=== PATIENT | male | born 1940 | race Caucasian/White ===

== ENCOUNTER 2017-06-15 10:20 | Observation (INO) ==
[~2017-06-15 10:20] MED LIST: ACETAMINOPHEN 325 MG TABLET PO PRN; DOCUSATE SODIUM 100 MG CAPSULE PO PRN; ONDANSETRON 4 MG/2 ML VIAL IV PRN
[2017-06-15] MEDS ORDERED: GLUCAGON 1 MG VIAL IM PRN (10:29)
[2017-06-15] MEDS ORDERED: DEXTROSE 50% 25 GM/50 ML VIAL IV PRN (10:29)
[2017-06-15 11:05] LABS: Basophils # 0.1 10*3/uL (0.0-0.2); Basophils % 0.8 % (0.0-0.8); Eosinophils # 0.1 10*3/uL (0.0-0.87); Eosinophils % 1.1 % (0.00-10.9); Hemoglobin 15.8 GM/DL (14.0-18.0); Immature Granulocytes % 0.3 %; Immature Granulocytes Absolute 0.03 #; Lymphocytes # 2.2 10*3/uL (1.4-4.0); Lymphocytes % 25.1 % (21.2-54.2); Mean Corpuscular HGB Conc 33.6 GM/DL (32-36); Mean Corpuscular Hemoglobin 30 PG (27-34); Mean Corpuscular Volume 89.5 FL (87-102); Mean Platelet Volume 9.3 FL (9.6-12.0); Monocytes # 0.6 10*3/uL (0.11-0.8); Monocytes % 7.4 % (1.7-12.7); Neutrophils # 5.7 10*3/uL (1.4-7.4); Neutrophils % 65.3 % (38.7-73.9); Platelet Count 356 T/CUMM (130-400); Red Blood Count 5.25 MC/CUMM (3.8-5.5); Red Cell Distribution Width 13.8 % (9.3-17.3); White Blood Count 8.7 T/CUMM (4-12)
[2017-06-15 11:41] LABS: Albumin 4.6 G/DL (3.4-5.0); Bilirubin,Total 1.5 MG/DL (0.2-1.0); Calcium 9.7 MG/DL (8.5-10.1); Magnesium 2.3 MG/DL (1.8-2.4); Osmolality,Calculated 278.8 MOS/KG (273-304); Potassium 4.4 MMOL/L (3.5-5.1); Total Protein 7.9 G/DL (6.4-8.3)
[2017-06-15 11:42] LABS: Troponin I Only < 0.015 NG/ML (0.00-0.045)
[2017-06-15 11:48] LABS: Free T4 (Free Thyroxine) 0.94 NG/DL (0.76-1.46); Thyroid Stimulating Hormone 4.24 uIU/ml (0.358-3.74)
--- NOTE | 2017-06-15 12:21 | EKG Report ---
Stationary ECG Study [facility] Test Date: 06/15/2017 12:21:46 PM Pat Name: CHARMAINE REYES Department: Room: 280 Gender: M Business Consult: : 1940 Requested by: Presley Jacobs Order Number: [id number] Reading MD: MORAIMA HERRERA Intervals Allison Rate: 65 P: 62 NV: 250 QRS: 60 QRSD: 116 T: 66 QT: 400 QTc: 412 Interpretive Statements SINUS RHYTHM WITH PROLONGED NV INTERVAL NONSPECIFIC INTRAVENTRICULAR CONDUCTION DELAY Electronically Signed On 06-19-17 15:22:30 CDT by MORAIMA HERRERA [email or web address]
[2017-06-15] MEDS ORDERED: ENOXAPARIN 80 MG/0.8 ML SYRINGE SUBCUT SCH (12:30)
--- NOTE | 2017-06-15 13:21 | Family Practice History&Phys ---
Assessment and Plan (1) Chest pain Status: Acute Assessment and plan: 06/15/2017: We will admit get cardiac ossicles an EKG and do a chest x-ray and have a cardiology see him. Current Visit: Yes (2) Hypercholesterolemia Status: Acute Assessment and plan: 06/15/2017: Check fasting lipids in the morning Current Visit: Yes (3) Diabetes Status: Acute Assessment and plan: 06/15/2017: Placed on sliding scale and hopefully will build her discharge him on in the morning if all is negative Current Visit: No History of Present Illness Chief complaint: Chest pain, new onset diabetes, fatigue History of present illness: Mr. Muro is a 76 year old male Well-known to me. Has seen him for several years and he is an avid golfer. ( He used to play almost daily, until about 6 months ago.) As of late he has been having some increasing fatigue and daughter states he is not getting out as much as he used to, and states that he has been hurting particularly in his left rib cage/chest area. Admits that he has had a little diaphoresis with it "cold sweat", and also has some associated dizziness. Noted this morning that his blood sugar was up to 323, and was just feeling "very bad with some fatigue. No significant radiation of his pain although there may have been a little bit in his "left shoulder". He does have a history of hypercholesterolemia and also had a cath back in 2006 with a stent in his left anterior descending artery. Patient does not smoke nor does he drink alcohol. In general is very healthy otherwise Because of his symptom and the fact that this is fairly new for this patient, felt admission was necessary at least 23 hours make sure enzymes were okay and get a emergency care attendant to see him. It should be noted in the room he had an episode where he became dizzy and somewhat pale, his daughter was in the room with him at the time. Never lost consciousness and certainly a lot of this could be related to his diabetes, which is new onset Home Medications Medication Instructions Recorded Confirmed Type Aspirin [Ecotrin] 81 mg PO DAILY 07/08/15 12/18/16 History Atorvastatin Calcium 20 mg PO DAILY 07/08/15 12/18/16 History Verapamil HCl [Verapamil ER Cap] 180 mg PO DAILY 07/08/15 12/18/16 History metFORMIN [Glucophage] 850 mg PO BID W/MEALS 07/08/15 12/18/16 History Azithromycin [Azithromycin Z Pack] 250 mg PO DIRECTED 12/18/16 12/18/16 History HYDROcodone/CHLORPHEN ER SUSP 5 ml PO BID PRN 12/18/16 12/18/16 History [Tussionex] Multivitamin [Multivitamins] 1 each PO DAILY 12/18/16 12/18/16 History Naproxen [Naprosyn Tab] 500 mg PO BID PRN 12/18/16 12/18/16 History Oseltamivir Cap [Tamiflu Cap] 75 mg PO BID 12/18/16 12/18/16 History Allergies Allergy/AdvReac Type Severity Reaction Status Date / Time No Known Allergies Allergy Verified 07/08/15 10:35 12 point system: reviewed and no additional remarkable complaints except as stated (Except that mentioned in the history and physical.) Medical,Surgical,& Family Hx - Medical History Cardio: History of: Hypertension Endocrine: History of: Diabetes Mellitus (NIDDM), Dyslipidemia Gastrointestinal: History of: Gastrointestinal Bleed, GI Problems (pancreatic stone) Musculoskeletal: History of: Musculoskeletal Problems (rt knee scope, rt shoulder replacement) - Surgical History Cardiac Surgeries: Sugical HX of: Cardiac Catheterization (2 STENTS 2006) HEENT Surgeries: Patient denies: Tonsilectomy & Adenoidectomy Abdominal Surgeries: Surgical HX of: Abdominal Surgery (splenectomy) Orthopedic Surgeries: Surgical HX of;: Total Hip Replacement (3 HIP REPLACEMENTS ) - Family History Family History: Reports;: Family Hypertension Denies;: Family Cancer, Family Diabetes, Family Heart Disease, Family Stroke - Social History Smoking Status: Never smoker Frequency of Alcohol Use: None Type of Drug Use: None Exam - Constitutional Vitals: Period Temp Pulse Resp BP Sys/Marrufo Pulse Ox Last 24 Hr 65 18 146/86 98 Exam: Generally well-developed male he has a normal body habitus with a BMI of 26.19. Is alert and oriented at this time. He did have a spell of dizziness and fatigue for less than 30 seconds. He is without any justyna chest pain at this time although he does have a little bit of left lower rib cage discomfort that is not reproducible. HEENT pupils equal reactive light extraocular movements intact neck supple trachea midline Cardiovascular rate is regular no gallop or rub 1/6 systolic ejection murmur Lungs are clear Abdomen soft nondistended without any suprapubic pain Extremities no clubbing cyanosis edema Neurologically stable cranial and peripheral nerves at this time Results - Labs CBC & BMP: 06/15/17 10:55 06/15/17 10:55
[2017-06-15] MEDS: METOPROLOL TARTRATE 25 MG TABLET PO SCH ×2 (13:22→13:45)
[2017-06-15] MEDS: ASPIRIN CHEW 81 MG TABLET PO SCH (13:23)
[2017-06-15] MEDS: INSULIN LISPRO 100 UNIT/ML SUBCUT SCH ×2 (13:45→16:51)
[2017-06-15] MEDS: SODIUM CHLORIDE 0.9% 1,000 ML IV SCH ×2 (13:46→18:36)
--- NOTE | 2017-06-15 15:04 | XRay Report ---
XR chest 2V Indication: SOB Comparison: Chest x-ray dated December 18, 2016 Technique: Frontal and lateral views of the chest. Findings: The cardiomediastinal silhouette is stable in configuration. Chronic/granulomatous change without focal consolidation, pleural effusion, or pneumothorax. Visualized osseous and surrounding soft tissue structures appear grossly unchanged. IMPRESSION: Stable chest x-ray without acute cardiopulmonary process demonstrated. PROCEDURE INTERPRETED AT [facility] Final Report Signed by: Dr Raul Newton
[2017-06-15 16:41] LABS: Apearance,Urine CLEAR (Clear); Bacteria,Urine Occasional /HPF (Few); Bilirubin,Urine Negative (Negative); Blood, Urine Negative (Negative); Glucose,Urine (UA) Negative (Negative); Ketones,Urine Negative (Negative); Nitrite,Urine Negative (Negative); Protein,Urine Negative; Urine Color Straw (Yellow); Urine Specific Gravity 1.005 (1.001-1.035); Urine Urobilinogen < 2.0 EU/DL (0.2-1.0); WBC,Urine <1 /HPF (0-6)
[2017-06-15 17:51] LABS: Troponin I Only < 0.015 NG/ML (0.00-0.045)
[2017-06-15 22:45] LABS: Troponin I Only < 0.015 NG/ML (0.00-0.045)
[2017-06-16] MEDS: INSULIN LISPRO 100 UNIT/ML SUBCUT SCH ×3 (05:39→12:08)
[2017-06-16] MEDS: SODIUM CHLORIDE 0.9% 1,000 ML IV SCH ×3 (05:41→11:53)
[2017-06-16 05:54] LABS: Risk Ratio 3.13; VLDL CHOLESTEROL 14.8 MG/DL
--- NOTE | 2017-06-16 08:40 | Cardiology Consult Note ---
I, Bethanie Webber RN, am scribing for, and in the presence of, Benton Dobson MD 08:40. Assessment and Plan - Time spent with patient Time spent with patient: Greater than 30 minutes (Due to assessment, planning, documentation, medication review) (1) Dizziness Status: Acute Assessment and plan: I have examined and interviewed Mr. Muro. I agree with note above that would add the followin. 76-year-old WM with controlled hypertension, dyslipidemia, diabetes, CAD status post LAD stenting in 2006, with episode of syncope early 2015, now with some generalized fatigue and episodes of orthostasis 1 associated with some diaphoresis after moving a heavy dresser and then leaning over and standing up consistent with orthostasis. 2. Given his sinus bradycardia I suspect this may be contributing to his fatigue and possibly his orthostasis. I recommended stopping verapamil and changing to ARB or Norvasc to control his blood pressure. 3. Schedule outpatient exercise myocardial scan at [facility] this week, and hold beta -brendan at least 24 hours before. 4. He has been followed by Dr. Ward in clinic, and she will follow up with him in the next 1-2 weeks. 5. He has a normal EKG and is ruled out for [place] Current Visit: Yes (2) Chest pain Status: Acute Current Visit: Yes History of Present Illness - Data of Consult Patient: known to practice within the last 3 years Consult date: 06/15/17 Requesting Physician: Presley Goldberg Primary care physician: Presley Goldberg - Consult Narrative Reason for consult: Chest pain History of present illness: Composite Bond Worker: Dr. Ward PCP: Dr. Goldberg Mr. Muro is a 76 year old male has seen Dr. Ward in the past with a history of CAD, esophageal stricture, NIDDM, and dyslipidemia. Heart cath in October 2007 with successful intracoronary stent placement in the mid LAD. He was cathed again January 2015 for recurrent chest pain. There was no disease found to account for any anginal symptomatology. Other surgical history includes right shoulder, bilateral hip, esophageal stretching, knee scope, and pancreas and spleen removal. Family history is positive for mother with COPD. He reports she is a lifetime non-smoker. Mr. Muro presented to Dr. Goldberg's office this morning with complaints of dizziness and diaphoresis. He checked his blood sugar at home and it was in the 320s. He reports he has been having chest pain for the last week. He reports it is a dull sensation on the left lower part of his chest. He says the pain waxes and wanes and rates it a 3 on a scale of 1-10. He notes no triggers or alleviators. It does not radiate. It is not reproducible with palpation. He also reports he has been having left shoulder and right groin soreness. He reports he has been remodeling his house and thinks he may have overdone it. He denies any shortness of breath or nausea and vomiting with these episodes. His blood pressure was slightly elevated on admission at 146/ 86. His home medications have not been listed at this time so I am not sure if he takes anything for blood pressure or not. Glucose on admission was down to 146. Electrolytes are within normal range, cardiac biomarkers have been negative 1. We will continue to cycle these. EKG showed sinus rhythm with heart rate of 65. He denies any current chest pain, shortness of breath, palpitations, or dizziness. CC: Presley Goldberg, DO - Home Medications and Allergies Home Medications: Home Medications Medication Instructions Recorded Confirmed Type Aspirin [Ecotrin] 81 mg PO BEDTIME 07/08/15 06/15/17 History Atorvastatin Calcium 20 mg PO BEDTIME 07/08/15 06/15/17 History Verapamil HCl [Verapamil ER Cap] 180 mg PO DAILY 07/08/15 06/15/17 History Multivitamin [Multivitamins] 1 each PO DAILY 12/18/16 06/15/17 History Naproxen [Naprosyn Tab] 500 mg PO BID PRN 12/18/16 06/15/17 History Allergies/Adverse Reactions: Allergies Allergy/AdvReac Type Severity Reaction Status Date / Time No Known Allergies Allergy Verified 07/08/15 10:35 - Constitutional Constitutional: Present: as per HPI - EENT Eyes: Absent: blurry vision, loss of vision Ears: Absent: ear pain, tinnitus Nose, mouth and throat: Present: neck pain. Absent: dysphagia, epistaxis, headache(s) - Cardiovascular Cardiovascular: Present: chest pain at rest, diaphoresis, lightheadedness. Absent: dyspnea, dyspnea on exertion, edema, radiating jaw, neck or arm pain, orthopnea, palpitations - Respiratory Respiratory: Absent: cough, dyspnea, hemoptysis, dyspnea on exertion, wheezing - Gastrointestinal Gastrointestinal: Present: constipation. Absent: abdominal pain, diarrhea, hematemesis, hematochezia, melena, nausea, vomiting - Genitourinary Genitourinary: Absent: dysuria, hematuria - Musculoskeletal Musculoskeletal: Present: limited range of motion, muscle weakness. Absent: back pain - Neurological Neurological: Present: abnormal gait, dizziness. Absent: abnormal speech, confusion, frequent falls, headache(s), syncope - Psychiatric Psychiatric: Absent: anxiety, depression - Endocrine Endocrine: Present: fatigue - Hematologic/Lymphatic Hematologic/Lymphatic: Present: easy bruising. Absent: easy bleeding Medical,Surgical,& Family Hx - Medical History Cardio: History of: Hypertension Endocrine: History of: Diabetes Mellitus (NIDDM), Dyslipidemia Gastrointestinal: History of: Gastrointestinal Bleed, GI Problems (Esophageal stricture) Musculoskeletal: History of: Back/Neck Problems - Surgical History Cardiac Surgeries: Sugical HX of: Cardiac Catheterization Abdominal Surgeries: Surgical HX of: Abdominal Surgery (Pancreas), EGD ( Esophageal stretching), Splenectomy Orthopedic Surgeries: Surgical HX of;: Orthopedic Surgery (Right shoulder), Total Hip Replacement (3 HIP REPLACEMENTS) - Family History Family History: Reports;: Additional Family History (Mother with COPD) - Social History Smoking Status: Never smoker Have you smoked in the last 12 months: No Frequency of Alcohol Use: None Type of Drug Use: None Marital Status: Lives With:: Spouse Functional capacity: independent ambulation Physical Examination Vital Signs Pulse Resp BP Pulse Ox 65 18 146/86 98 06/15/17 10:51 06/15/17 10:51 06/15/17 10:51 06/15/17 10:51 General: Present: Appears Well, No Apparent Distress HEENT: Present: PERRL, Mucus Membranes Moist Neck: Present: Supple Neck, Midline Trachea, No Bruit Cardiac: Present: Reg Rate and Rhythm Lungs: Present: Normal Breath Sounds, No Wheeze, Rales, Rhonchi Neuro: Absent: Resting Tremor, Essential Tremor Abdomen: Present: Soft, Active Bowel Sounds, Non-Tender. Absent: Distended Skin: Absent: Rash, Suspicious Lesions Extremities: Present: No Edema, Normal Upper Extr. Pulses, Normal Lower Extr. Pulses Result/EKG - Labs CBC & BMP: 06/15/17 10:55 06/15/17 10:55 Lab Results: I have reviewed the past 24 hour labs Labs: Laboratory Results - last 24 hr 06/15/17 06/15/17 06/15/17 10:55 10:55 10:55 WBC 8.7 RBC 5.25 Hgb 15.8 Hct 47.0 MCV 89.5 MCH 30 MCHC 33.6 RDW 13.8 Plt Count 356 MPV 9.3 L Neut % (Auto) 65.3 Lymph % (Auto) 25.1 [place] % (Auto) 7.4 Eos % (Auto) 1.1 Baso % (Auto) 0.8 Neut # (Auto) 5.7 Lymph # (Auto) 2.2 [place] # (Auto) 0.6 Eos # (Auto) 0.1 Baso # (Auto) 0.1 Immature Gran % 0.3 Nucleated RBC % 0.0 Immature Gran # 0.03 Nucleated RBCs # 0.00 Sodium 137 Potassium 4.4 Chloride 103 Carbon Dioxide 29 Anion Gap 9.4 BUN 22 H Creatinine 0.90 GFR Calculation 106 BUN/Creatinine Ratio 24.00 H Glucose 146 H Hemoglobin A1c Calculated Osmolality 278.8 Calcium 9.7 Magnesium 2.3 Total Bilirubin 1.50 H AST 20 ALT 34 Alkaline Phosphatase 147 H Total Creatine Kinase CK-MB (CK-2) Troponin I Total Protein 7.9 Albumin 4.6 Globulin 3.3 Albumin/Globulin Ratio 1.3 Free T4 0.94 TSH 3rd Generation 4.240 H 06/15/17 06/15/17 10:55 10:55 WBC RBC Hgb Hct MCV MCH MCHC RDW Plt Count MPV Neut % (Auto) Lymph % (Auto) [place] % (Auto) Eos % (Auto) Baso % (Auto) Neut # (Auto) Lymph # (Auto) [place] # (Auto) Eos # (Auto) Baso # (Auto) Immature Gran % Nucleated RBC % Immature Gran # Nucleated RBCs # Sodium Potassium Chloride Carbon Dioxide Anion Gap BUN Creatinine GFR Calculation BUN/Creatinine Ratio Glucose Hemoglobin A1c 7.5 H Calculated Osmolality Calcium Magnesium Total Bilirubin AST ALT Alkaline Phosphatase Total Creatine Kinase 86 CK-MB (CK-2) 1.8 Troponin I < 0.015 Total Protein Albumin Globulin Albumin/Globulin Ratio Free T4 TSH 3rd Generation - EKG EKG results: interpreted by me EKG shows: sinus rhythm IOlya Randall Scott, MD, personally performed the services described in this documentation, ascribed by Webber,Bethanie, RN in my presence, and it is both accurate and complete .
[2017-06-16] MEDS ORDERED: PANTOPRAZOLE 40 MG TABLET PO SCH (09:00)
[2017-06-16] MEDS ORDERED: MULTIVITAMIN (CENTRUM) TABLET PO SCH (09:00)
[2017-06-16] MEDS ORDERED: ENOXAPARIN 40 MG/0.4 ML SYRINGE SUBCUT SCH (09:00)
[2017-06-16] MEDS ORDERED: VERAPAMIL SR 180 MG TABLET PO SCH (09:00)
[2017-06-16] MEDS: ASPIRIN CHEW 81 MG TABLET PO SCH (09:32)
[2017-06-16] MEDS: METOPROLOL TARTRATE 25 MG TABLET PO SCH (09:34)
--- NOTE | 2017-06-16 11:06 | Discharge Summary ---
Hospital Course - Hospital Course Hospital Course: Patient came to hospital with increasing fatigue and pain in his left rib chest area. He is also reasonably new onset diabetic over the last 6 months to year or so. He has not been taking his metformin. Nonetheless had some pain in the left shoulder going to the left side of his chest wall. There is no justyna midsternal chest pain. Also had a few what felt to be presyncopal episodes but he was never significantly orthostatic from these. Nonetheless, cardiac ices 3 were negative. Patient was evaluated by cardiology and felt that he could be discharged holding some of his blood pressure medicines including beta-brendan and will be stress test on an outpatient basis. Because of his syncopal episodes I did do carotid duplex which revealed no hemodynamically significant stenosis. Patient was ready to go home Diagnosis - Discharge Diagnosis (1) Chest pain Status: Acute (2) Hypercholesterolemia Status: Acute (3) Diabetes Status: Acute Specialty Discharge - Follow Up or Referrals Follow up with: Bashir Barr MD [Physician] - (STRESS TEST ThursdayJUNE 19 @ 0730 NO CAFFIENE 24 HRS PRIOR TO TEST, NOTHING TO EAT OR DRINK AFTER MIDNIGHT THE NIGHT BEFORE, DO NOT TAKE MORNING MEDS THE DAY OF TEST. WEAR COMFORTABLE SHOES. FOLLOW UP WITH DR BARR WED JUL 01 @ 0830) Presley Goldberg DO [Primary Care Provider] - (07/07/2017 10:45) Discharge Plan - Discharge Data Disposition: Disch To Home/Self Care Condition at Discharge: Stable Discharge Diet: diabetic diet, heart healthy Activity: increase activity as tolerated Hygiene: no restrictions Weight Bearing at Discharge: weight bear as tolerated Driving: no restrictions Contact your physician if you experience:: fever over 101, Nausea/Vomiting - Discharge Medications New Aspirin Chew Tab 81 mg PO DAILY tablet Losartan Potassium 50 mg PO DAILY #30 tablet Metformin HCl [Metformin HCl ER] 500 mg PO DAILY W/BREAKFAST #30 tab.er.[id number] Metoprolol Tartrate Tab [Lopressor Tab] 25 mg PO DAILY tablet Continue Atorvastatin Calcium 20 mg PO BEDTIME Aspirin [Ecotrin] 81 mg PO BEDTIME Verapamil HCl [Verapamil ER Cap] 180 mg PO DAILY Multivitamin [Multivitamins] 1 each PO DAILY Discontinued Naproxen [Naprosyn Tab] 500 mg PO BID PRN PRN Reason: INFLAMMATION - Follow Up or Referral Follow Up: Bashir Barr MD [Physician] - (STRESS TEST ThursdayJUNE 19 @ 0730 NO CAFFIENE 24 HRS PRIOR TO TEST, NOTHING TO EAT OR DRINK AFTER MIDNIGHT THE NIGHT BEFORE, DO NOT TAKE MORNING MEDS THE DAY OF TEST. WEAR COMFORTABLE SHOES. FOLLOW UP WITH DR BARR ThuJUL 01 @ 0830) Presley Goldberg DO [Primary Care Provider] - (07/07/2017 10:45) - Forms/Instructions Exam - Constitutional Vitals: Period Temp Pulse Resp BP Sys/Marrufo Pulse Ox Last 24 Hr 97.1 F-98.9 F 53-65 18-18 122-146/65-86 95-98 Discharge Results Labs on day of discharge: Labs from last 24 hours 06/16/17 06/16/17 06/16/17 07:52 05:19 03:58 WBC RBC Hgb Hct MCV MCH MCHC RDW Plt Count MPV Neut % (Auto) Lymph % (Auto) [place] % (Auto) Eos % (Auto) Baso % (Auto) Neut # (Auto) Lymph # (Auto) [place] # (Auto) Eos # (Auto) Baso # (Auto) Immature Gran % Nucleated RBC % Immature Gran # Nucleated RBCs # Sodium Potassium Chloride Carbon Dioxide Anion Gap BUN Creatinine GFR Calculation BUN/Creatinine Ratio Glucose POC Glucose 122 H 170 H Hemoglobin A1c Calculated Osmolality Calcium Magnesium Total Bilirubin AST ALT Alkaline Phosphatase Total Creatine Kinase CK-MB (CK-2) Troponin I Total Protein Albumin Globulin Albumin/Globulin Ratio Triglycerides 74 Cholesterol 122 LDL Cholesterol 70.0 VLDL Cholesterol 14.8 HDL Cholesterol 39 L Heart Disease Risk Ratio 3.13 Free T4 TSH 3rd Generation Urine Color Urine Appearance Urine pH Ur Specific [place] Urine Protein Urine Glucose (UA) Urine Ketones Urine Blood Urine Nitrate Urine Bilirubin Urine Urobilinogen Urine Leukocytes Urine WBC Urine Bacteria Ur Culture Indicated? 06/15/17 06/15/17 06/15/17 21:37 20:41 17:07 WBC RBC Hgb Hct MCV MCH MCHC RDW Plt Count MPV Neut % (Auto) Lymph % (Auto) [place] % (Auto) Eos % (Auto) Baso % (Auto) Neut # (Auto) Lymph # (Auto) [place] # (Auto) Eos # (Auto) Baso # (Auto) Immature Gran % Nucleated RBC % Immature Gran # Nucleated RBCs # Sodium Potassium Chloride Carbon Dioxide Anion Gap BUN Creatinine GFR Calculation BUN/Creatinine Ratio Glucose POC Glucose 138 H Hemoglobin A1c Calculated Osmolality Calcium Magnesium Total Bilirubin AST ALT Alkaline Phosphatase Total Creatine Kinase 68 D 86 CK-MB (CK-2) 1.5 1.5 Troponin I < 0.015 < 0.015 Total Protein Albumin Globulin Albumin/Globulin Ratio Triglycerides Cholesterol LDL Cholesterol VLDL Cholesterol HDL Cholesterol Heart Disease Risk Ratio Free T4 TSH 3rd Generation Urine Color Urine Appearance Urine pH Ur Specific [place] Urine Protein Urine Glucose (UA) Urine Ketones Urine Blood Urine Nitrate Urine Bilirubin Urine Urobilinogen Urine Leukocytes Urine WBC Urine Bacteria Ur Culture Indicated? 06/15/17 06/15/17 06/15/17 16:24 16:13 10:55 WBC RBC Hgb Hct MCV MCH MCHC RDW Plt Count MPV Neut % (Auto) Lymph % (Auto) [place] % (Auto) Eos % (Auto) Baso % (Auto) Neut # (Auto) Lymph # (Auto) [place] # (Auto) Eos # (Auto) Baso # (Auto) Immature Gran % Nucleated RBC % Immature Gran # Nucleated RBCs # Sodium Potassium Chloride Carbon Dioxide Anion Gap BUN Creatinine GFR Calculation BUN/Creatinine Ratio Glucose POC Glucose 131 H Hemoglobin A1c 7.5 H Calculated Osmolality Calcium Magnesium Total Bilirubin AST ALT Alkaline Phosphatase Total Creatine Kinase CK-MB (CK-2) Troponin I Total Protein Albumin Globulin Albumin/Globulin Ratio Triglycerides Cholesterol LDL Cholesterol VLDL Cholesterol HDL Cholesterol Heart Disease Risk Ratio Free T4 TSH 3rd Generation Urine Color Straw Urine Appearance Clear Urine pH 7.0 Ur Specific [place] 1.005 Urine Protein Negative Urine Glucose (UA) Negative Urine Ketones Negative Urine Blood Negative Urine Nitrate Negative Urine Bilirubin Negative Urine Urobilinogen < 2.0 H Urine Leukocytes Negative Urine WBC <1 Urine Bacteria Occasional Ur Culture Indicated? Not indicated 06/15/17 06/15/17 06/15/17 10:55 10:55 10:55 WBC RBC Hgb Hct MCV MCH MCHC RDW Plt Count MPV Neut % (Auto) Lymph % (Auto) [place] % (Auto) Eos % (Auto) Baso % (Auto) Neut # (Auto) Lymph # (Auto) [place] # (Auto) Eos # (Auto) Baso # (Auto) Immature Gran % Nucleated RBC % Immature Gran # Nucleated RBCs # Sodium 137 Potassium 4.4 Chloride 103 Carbon Dioxide 29 Anion Gap 9.4 BUN 22 H Creatinine 0.90 GFR Calculation 106 BUN/Creatinine Ratio 24.00 H Glucose 146 H POC Glucose Hemoglobin A1c Calculated Osmolality 278.8 Calcium 9.7 Magnesium 2.3 Total Bilirubin 1.50 H AST 20 ALT 34 Alkaline Phosphatase 147 H Total Creatine Kinase 86 CK-MB (CK-2) 1.8 Troponin I < 0.015 Total Protein 7.9 Albumin 4.6 Globulin 3.3 Albumin/Globulin Ratio 1.3 Triglycerides Cholesterol LDL Cholesterol VLDL Cholesterol HDL Cholesterol Heart Disease Risk Ratio Free T4 0.94 TSH 3rd Generation 4.240 H Urine Color Urine Appearance Urine pH Ur Specific [place] Urine Protein Urine Glucose (UA) Urine Ketones Urine Blood Urine Nitrate Urine Bilirubin Urine Urobilinogen Urine Leukocytes Urine WBC Urine Bacteria Ur Culture Indicated? 06/15/17 10:55 WBC 8.7 RBC 5.25 Hgb 15.8 Hct 47.0 MCV 89.5 MCH 30 MCHC 33.6 RDW 13.8 Plt Count 356 MPV 9.3 L Neut % (Auto) 65.3 Lymph % (Auto) 25.1 [place] % (Auto) 7.4 Eos % (Auto) 1.1 Baso % (Auto) 0.8 Neut # (Auto) 5.7 Lymph # (Auto) 2.2 [place] # (Auto) 0.6 Eos # (Auto) 0.1 Baso # (Auto) 0.1 Immature Gran % 0.3 Nucleated RBC % 0.0 Immature Gran # 0.03 Nucleated RBCs # 0.00 Sodium Potassium Chloride Carbon Dioxide Anion Gap BUN Creatinine GFR Calculation BUN/Creatinine Ratio Glucose POC Glucose Hemoglobin A1c Calculated Osmolality Calcium Magnesium Total Bilirubin AST ALT Alkaline Phosphatase Total Creatine Kinase CK-MB (CK-2) Troponin I Total Protein Albumin Globulin Albumin/Globulin Ratio Triglycerides Cholesterol LDL Cholesterol VLDL Cholesterol HDL Cholesterol Heart Disease Risk Ratio Free T4 TSH 3rd Generation Urine Color Urine Appearance Urine pH Ur Specific [place] Urine Protein Urine Glucose (UA) Urine Ketones Urine Blood Urine Nitrate Urine Bilirubin Urine Urobilinogen Urine Leukocytes Urine WBC Urine Bacteria Ur Culture Indicated? DS: Provider Date of admission: 06/15/17 10:25 Primary care physician: Presley Goldberg DO Attending physician on admission: Presley Goldberg DO Consults: 06/15/17 10:20 Consult to Case Mgmt/Social Srvs [CONS] Routine Reason for Case Mgmt/Social Srvs: Discharge Planning 06/15/17 10:22 Consult to Physician [CONS] Routine Comment: CP,New onset DM Consulting Provider: Cardiology - [facility] Person Notified: nisreen Barreraa 06/16 -7:30 Date Notified: 06/15/17 Time Notified: 11:15 06/15/17 10:30 Consult to [facility], Educator [CONS] Routine Reason for Balance Staff Staker: Evaluate and Recommend Consult Comment: new onset diabetes Discharging clinician: Presley Goldberg DO
--- NOTE | 2017-06-16 12:11 | Ultrasound Report ---
Exam: US carotid duplex BI Date:06/16/2017 11:08 AM Comparison: None Indication: Syncope RIGHT - Peak Velocity Measurements CCA MID: 70 cm/s ICA PROX: 58.6 cm/s ICA DISTAL: 56.0 cm/s ECA: 99.0 cm/s Vertebral: 41.6 cm/s LEFT - Peak Velocity Measurements CCA MID: 86 cm/s ICA PROX: 75.5 cm/s ICA DISTAL: 67.7 cm/s ECA: 108.1 cm/s VERTEBRAL: 56.0 cm/s Findings: Grayscale, spectral Doppler, and color flow analysis performed and interpreted There is a mild amount of soft and partially calcified plaque in both proximal internal carotid arteries Peak systolic ratios are 0.8 on the right and 0.9 on the left There is antegrade flow in both vertebral arteries Impression: Mild amount of plaque with less than 50% diameter stenoses bilaterally by NASCET criteria PROCEDURE INTERPRETED AT [facility] DEPARTMENT OF RADIOLOGY Final Report Signed by: Dr. Brandee Cochran
[2017-06-16 12:18] VITALS: BP 147/79
[2017-06-16] MEDS ORDERED: ATORVASTATIN 20 MG TABLET PO SCH (21:00)
[2017-06-17] MEDS ORDERED: METOPROLOL SUCCINATE XL 25 MG TABLET PO SCH (09:00)
== END 2017-06-16 15:00 | disposition home or self-care (01) ==
LOC: N.TELEN
PROVIDERS: ADMIT Family Medicine; ATTEND Family Medicine

== ENCOUNTER 2020-02-14 10:06 | Observation (INO) ==
[2020-02-14] MEDS ORDERED: ASPIRIN 325 MG TABLET PO STA (10:44)
[2020-02-14] MEDS ORDERED: NITROGLYCERIN 2% OINT 1 INCH/GM PACK TOP STA (10:44)
[2020-02-14 10:59] LABS: Basophils # 0.1 10*3/uL (0.0-0.2); Basophils % 0.6 % (0.0-0.8); Eosinophils # 0.2 10*3/uL (0.0-0.87); Eosinophils % 1.8 % (0.00-10.9); Hematocrit 45.1 VOL% (42.0-52.0); Hemoglobin 14.3 GM/DL (14.0-18.0); Immature Granulocytes % 0.3 %; Immature Granulocytes Absolute 0.03 #; Lymphocytes # 2.4 10*3/uL (1.4-4.0); Mean Corpuscular HGB Conc 31.7 GM/DL (32-36); Mean Corpuscular Volume 91.5 FL (87-102); Mean Platelet Volume 9.1 FL (9.6-12.0); Monocytes % 9.8 % (1.7-12.7); Neutrophils % 60.5 % (38.7-73.9); Platelet Count 404 T/CUMM (130-400); Red Blood Count 4.93 MC/CUMM (3.8-5.5); Red Cell Distribution Width 13.8 % (9.3-17.3); White Blood Count 8.9 T/CUMM (4-12)
[2020-02-14 11:26] LABS: Albumin 3.9 G/DL (3.4-5.0); Bilirubin,Total 0.4 MG/DL (0.2-1.0); Calcium 9.6 MG/DL (8.5-10.1); Total Protein 7.9 G/DL (6.4-8.3)
[2020-02-14] MEDS ORDERED: DEXTROSE 50% 25 GM/50 ML VIAL IV PRN (14:33)
[2020-02-14] MEDS ORDERED: GLUCAGON 1 MG VIAL IM PRN (14:33)
[2020-02-14] MEDS ORDERED: ENOXAPARIN 40 MG/0.4 ML SYRINGE SUBCUT SCH (14:33)
[2020-02-14] MEDS ORDERED: ACETAMINOPHEN 325 MG TABLET PO PRN (14:33)
[2020-02-14] MEDS ORDERED: ONDANSETRON 4 MG/2 ML VIAL IV PRN (14:33)
[2020-02-14] MEDS: SODIUM CHLORIDE 0.9% 1,000 ML IV SCH ×2 (15:59→23:50)
[2020-02-14] MEDS: INSULIN LISPRO 100 UNIT/ML SUBCUT SCH ×2 (19:59→21:08)
[2020-02-14] MEDS ORDERED: ATORVASTATIN 20 MG TABLET PO SCH (21:00)
[2020-02-14] MEDS: ASPIRIN EC 81 MG TABLET PO SCH (21:04)
[2020-02-14] MEDS: DOCUSATE SODIUM 100 MG CAPSULE PO SCH (21:05)
[2020-02-15] MEDS: DOCUSATE SODIUM 100 MG CAPSULE PO SCH ×2 (08:00→21:01)
[2020-02-15] MEDS: ASPIRIN EC 81 MG TABLET PO SCH ×2 (08:00→21:02)
[2020-02-15] MEDS: MAGNESIUM CHLORIDE 64 MG TABLET PO SCH (08:00)
[2020-02-15] MEDS: PANTOPRAZOLE 40 MG TABLET PO SCH (08:00)
[2020-02-15] MEDS: INSULIN LISPRO 100 UNIT/ML SUBCUT SCH ×4 (08:01→21:09)
[2020-02-15] MEDS ORDERED: MAGNESIUM SULF RIDER 2 GM in PREMIX 1 EACH IV PRN (08:04)
[2020-02-15] MEDS ORDERED: POTASSIUM CHLORIDE RIDER 10 MEQ in PREMIX 1 EACH IV PRN (08:04)
[2020-02-15 08:36] LABS: PT Patient Result 11.2 SECS (9.6-12.2)
[2020-02-15] MEDS ORDERED: NITROGLYCERIN DRIP 50 MG/250 ML BOTTLE IV ONE (11:10)
[2020-02-15] MEDS ORDERED: VERAPAMIL 5 MG/2 ML VIAL ONE (11:10)
[2020-02-15] MEDS ORDERED: LIDOCAINE 1% 20 ML VIAL ONE (11:10)
[2020-02-15] MEDS ORDERED: DIAZEPAM 5 MG TABLET PO ONE (11:30)
[2020-02-15] MEDS ORDERED: diphenhydrAMINE CAP 25 MG CAPSULE PO ONE (11:30)
[2020-02-15] MEDS ORDERED: MIDAZOLAM 2 MG/2 ML VIAL ONE (11:55)
[2020-02-15] MEDS ORDERED: fentaNYL 100 MCG/2 ML VIAL ONE (11:56)
[2020-02-15] MEDS ORDERED: ENOXAPARIN 60 MG/0.6 ML SYRINGE ONE (12:09)
[2020-02-15] MEDS ORDERED: TIROFIBAN 5,000 MCG/100 ML PREMIX IV ONE (12:16)
[2020-02-15] MEDS ORDERED: TIROFIBAN 5,000 MCG/100 ML PREMIX IV SCH (12:24)
[2020-02-15] MEDS ORDERED: TICAGRELOR 90 MG TABLET ONE (12:37)
[2020-02-15] MEDS ORDERED: ZALEPLON 5 MG CAPSULE PO PRN (12:46)
[2020-02-15] MEDS: SODIUM CHLORIDE 0.9% 1,000 ML IV SCH (14:43)
[2020-02-15] MEDS ORDERED: ATORVASTATIN 40 MG TABLET PO SCH (21:00)
[2020-02-15] MEDS: TICAGRELOR 90 MG TABLET PO SCH (21:01)
[2020-02-16] MEDS: SODIUM CHLORIDE 0.9% 1,000 ML IV SCH (03:10)
[2020-02-16 04:22] LABS: Basophils # 0.1 10*3/uL (0.0-0.2); Basophils % 0.9 % (0.0-0.8); Eosinophils # 0.2 10*3/uL (0.0-0.87); Eosinophils % 2.4 % (0.00-10.9); Hematocrit 39.5 VOL% (42.0-52.0); Immature Granulocytes % 0.3 %; Immature Granulocytes Absolute 0.03 #; Lymphocytes # 2.1 10*3/uL (1.4-4.0); Lymphocytes % 23.2 % (21.2-54.2); Mean Corpuscular HGB Conc 32.9 GM/DL (32-36); Mean Corpuscular Volume 87.8 FL (87-102); Mean Platelet Volume 9.4 FL (9.6-12.0); Monocytes % 11.4 % (1.7-12.7); Neutrophils % 61.8 % (38.7-73.9); Platelet Count 377 T/CUMM (130-400); Red Cell Distribution Width 13.6 % (9.3-17.3); White Blood Count 9.1 T/CUMM (4-12)
[2020-02-16 04:44] LABS: Calcium 8.6 MG/DL (8.5-10.1); Osmolality,Calculated 283.3 MOS/KG (273-304)
[2020-02-16 04:46] LABS: HDL Cholesterol 37 MG/DL (40-60); Risk Ratio 2.92; Triglycerides 78 MG/DL (2-150); Troponin I 0.022 NG/ML (0.00-0.045); VLDL CHOLESTEROL 15.6 MG/DL
[2020-02-16 07:50] VITALS: BP 131/70
[2020-02-16] MEDS: ASPIRIN EC 81 MG TABLET PO SCH (08:35)
[2020-02-16] MEDS: DOCUSATE SODIUM 100 MG CAPSULE PO SCH (08:35)
[2020-02-16] MEDS: TICAGRELOR 90 MG TABLET PO SCH (08:35)
[2020-02-16] MEDS: PANTOPRAZOLE 40 MG TABLET PO SCH (08:35)
[2020-02-16] MEDS: MAGNESIUM CHLORIDE 64 MG TABLET PO SCH (08:35)
[2020-02-16] MEDS: INSULIN LISPRO 100 UNIT/ML SUBCUT SCH (08:36)
== END 2020-02-16 11:30 | disposition home or self-care (01) ==
LOC: N.EDINP 10:06 → N.ED 10:06 → N.2W 14:28 → N.TELES 02-15 12:41
PROVIDERS: ADMIT Family Medicine; ATTEND Family Medicine
PROC: CLCCHCL (ICD-10-PCS; 2020-02-15 12:15)

== ENCOUNTER 2021-01-19 18:23 | Observation (INO) ==
[2021-01-19 19:31] LABS: Basophils # 0.1 10*3/uL (0.0-0.2); Basophils % 1.1 % (0.0-0.8); Eosinophils # 0.2 10*3/uL (0.0-0.87); Eosinophils % 2.2 % (0.00-10.9); Hematocrit 38.8 VOL% (42.0-52.0); Hemoglobin 12.3 GM/DL (14.0-18.0); Immature Granulocytes % 0.1 %; Immature Granulocytes Absolute 0.01 #; Lymphocytes # 3.2 10*3/uL (1.4-4.0); Lymphocytes % 42.5 % (21.2-54.2); Mean Corpuscular HGB Conc 31.7 GM/DL (32-36); Mean Corpuscular Volume 92.2 FL (87-102); Mean Platelet Volume 9.5 FL (9.6-12.0); Monocytes % 11.5 % (1.7-12.7); Neutrophils % 42.6 % (38.7-73.9); Platelet Count 367 T/CUMM (130-400); Red Blood Count 4.21 MC/CUMM (3.8-5.5); Red Cell Distribution Width 15.3 % (9.3-17.3); White Blood Count 7.4 T/CUMM (4-12)
[2021-01-19 19:46] LABS: Alanine Aminotransferase 22 U/L (16-61); Albumin 3.8 G/DL (3.4-5.0); Alkaline Phosphatase 125 U/L (45-117); Aspartate Amino Transferase 15 U/L (0-37); Bilirubin,Total < 0.39 MG/DL (0.2-1.0); Blood Urea Nitrogen 24 MG/DL (7-18); Calcium 8.8 MG/DL (8.5-10.1); Carbon Dioxide 27 MMOL/L (21-32); Estimated Glom Filtration Rate 99 ML/MIN; Glucose 173 MG/DL (74-106); Osmolality,Calculated 282.7 MOS/KG (273-304); Sodium 138 MMOL/L (136-145)
[2021-01-19] MEDS ORDERED: NITROGLYCERIN SL 0.4 MG TABLET SL PRN (20:16)
[2021-01-19] MEDS: DONEPEZIL 5 MG TABLET PO SCH (22:32)
[2021-01-20 05:35] LABS: Basophils # 0.1 10*3/uL (0.0-0.2); Basophils % 0.7 % (0.0-0.8); Eosinophils # 0.2 10*3/uL (0.0-0.87); Eosinophils % 3.3 % (0.00-10.9); Hematocrit 36.3 VOL% (42.0-52.0); Hemoglobin 11.6 GM/DL (14.0-18.0); Immature Granulocytes % 0.1 %; Immature Granulocytes Absolute 0.01 #; Lymphocytes # 2.7 10*3/uL (1.4-4.0); Lymphocytes % 38.9 % (21.2-54.2); Mean Corpuscular Volume 92.8 FL (87-102); Mean Platelet Volume 9.3 FL (9.6-12.0); Monocytes % 13.6 % (1.7-12.7); Neutrophils % 43.4 % (38.7-73.9); Platelet Count 366 T/CUMM (130-400); Red Blood Count 3.91 MC/CUMM (3.8-5.5); Red Cell Distribution Width 15.4 % (9.3-17.3); White Blood Count 6.9 T/CUMM (4-12)
[2021-01-20 06:03] LABS: Albumin 3.2 G/DL (3.4-5.0); Bilirubin,Total 1.1 MG/DL (0.2-1.0); Calcium 8.6 MG/DL (8.5-10.1); Osmolality,Calculated 283.3 MOS/KG (273-304); Potassium 4.1 MMOL/L (3.5-5.1); Total Protein 6.7 G/DL (6.4-8.3)
[2021-01-20] MEDS ORDERED: metFORMIN 500 MG TABLET PO SCH (08:00)
[2021-01-20 08:11] LABS: Troponin I < 0.015 NG/ML (0.00-0.045)
[2021-01-20] MEDS ORDERED: GLUCAGON 1 MG VIAL IM PRN (08:50)
[2021-01-20] MEDS ORDERED: DEXTROSE 50% 25 GM/50 ML VIAL IV PRN (08:50)
[2021-01-20 08:54] LABS: Troponin I < 0.015 NG/ML (0.00-0.045)
[2021-01-20] MEDS ORDERED: ASPIRIN 325 MG TABLET PO SCH (09:00)
[2021-01-20] MEDS: PIOGLITAZONE 15 MG TABLET PO SCH (09:22)
[2021-01-20] MEDS: ENOXAPARIN 40 MG/0.4 ML SYRINGE SUBCUT SCH ×2 (09:23→21:27)
[2021-01-20] MEDS: LOSARTAN 50 MG TABLET PO SCH (09:23)
[2021-01-20] MEDS: TICAGRELOR 90 MG TABLET PO SCH ×2 (09:56→21:27)
[2021-01-20] MEDS: INSULIN LISPRO 100 UNIT/ML SUBCUT SCH ×3 (11:34→21:28)
[2021-01-20 11:39] LABS: Troponin I < 0.015 NG/ML (0.00-0.045)
[2021-01-20 14:12] LABS: Troponin I < 0.015 NG/ML (0.00-0.045)
[2021-01-20 16:47] LABS: Troponin I < 0.015 NG/ML (0.00-0.045)
[2021-01-20] MEDS ORDERED: ROSUVASTATIN 20 MG TABLET PO SCH (21:00)
[2021-01-20] MEDS: DONEPEZIL 5 MG TABLET PO SCH (21:26)
[2021-01-21 06:46] LABS: Risk Ratio 3.15; VLDL CHOLESTEROL 17.8 MG/DL
[2021-01-21] MEDS: LOSARTAN 50 MG TABLET PO SCH ×2 (09:07→11:25)
[2021-01-21] MEDS: PIOGLITAZONE 15 MG TABLET PO SCH ×2 (09:07→11:25)
[2021-01-21] MEDS: ASPIRIN EC 81 MG TABLET PO SCH ×2 (09:07→11:25)
[2021-01-21] MEDS: INSULIN LISPRO 100 UNIT/ML SUBCUT SCH ×2 (09:07→11:39)
[2021-01-21] MEDS: TICAGRELOR 90 MG TABLET PO SCH ×2 (09:07→11:25)
[2021-01-21] MEDS: ENOXAPARIN 40 MG/0.4 ML SYRINGE SUBCUT SCH (11:25)
[2021-01-21 11:42] VITALS: BP 139/87
== END 2021-01-21 13:55 | disposition home or self-care (01) ==
LOC: N.ED 18:23 → N.EDINP 18:23 → N.TELES 20:32
PROVIDERS: ADMIT Family Medicine; ATTEND Family Medicine

== ENCOUNTER 2021-09-16 09:32 | Observation (INO) ==
[2021-09-16 11:28] LABS: PT Patient Result 11.2 SECS (10.5-12.0)
[2021-09-16 11:30] LABS: Partial Thromboplastin Time < 20.0 SECS (23.9-33.8)
[2021-09-16 11:36] LABS: Basophils % 0.4 % (0.0-0.8); Eosinophils # 0.1 10*3/uL (0.0-0.87); Eosinophils % 1.2 % (0.00-10.9); Hematocrit 42.5 VOL% (42.0-52.0); Hemoglobin 13.8 GM/DL (14.0-18.0); Immature Granulocytes % 0.3 %; Immature Granulocytes Absolute 0.02 #; Lymphocytes # 2.3 10*3/uL (1.4-4.0); Lymphocytes % 31.5 % (21.2-54.2); Mean Corpuscular HGB Conc 32.5 GM/DL (32-36); Mean Corpuscular Volume 91.4 FL (87-102); Mean Platelet Volume 10.1 FL (9.6-12.0); Monocytes % 7.7 % (1.7-12.7); Neutrophils % 58.9 % (38.7-73.9); Platelet Count 406 T/CUMM (130-400); Red Blood Count 4.65 MC/CUMM (3.8-5.5); Red Cell Distribution Width 14.5 % (9.3-17.3); White Blood Count 7.2 T/CUMM (4-12)
[2021-09-16 12:06] LABS: Albumin 4.2 G/DL (3.4-5.0); Bilirubin,Total 0.6 MG/DL (0.20-1.00); Calcium 9.4 MG/DL (8.5-10.1); Osmolality,Calculated 282.4 MOS/KG (273-304); Potassium 3.9 MMOL/L (3.5-5.1); Total Protein 7.7 G/DL (6.4-8.2)
[2021-09-16] MEDS ORDERED: ENOXAPARIN 100 MG/ML SYRINGE SUBCUT STA (13:03)
[2021-09-16] MEDS ORDERED: ONDANSETRON 4 MG/2 ML VIAL IV PRN (15:56)
[2021-09-16] MEDS ORDERED: DEXTROSE 50% 25 GM/50 ML VIAL IV PRN (15:56)
[2021-09-16] MEDS ORDERED: NITROGLYCERIN SL 0.4 MG TABLET SL PRN (15:56)
[2021-09-16] MEDS ORDERED: ACETAMINOPHEN 325 MG TABLET PO PRN (15:56)
[2021-09-16] MEDS ORDERED: MORPHINE 2 MG/1 ML SYRINGE IV PRN (15:56)
[2021-09-16] MEDS ORDERED: GLUCAGON 1 MG VIAL IM PRN (15:56)
[2021-09-16] MEDS: INSULIN REGULAR 100 UNIT/ML SUBCUT SCH ×2 (16:20→21:51)
[2021-09-16] MEDS ORDERED: ATORVASTATIN 20 MG TABLET PO SCH (21:00)
[2021-09-16] MEDS ORDERED: DONEPEZIL 10 MG TABLET PO SCH (21:00)
[2021-09-16] MEDS: MEMANTINE 5 MG TABLET PO SCH (21:51)
[2021-09-16] MEDS: DOCUSATE SODIUM 100 MG CAPSULE PO SCH (21:51)
[2021-09-17] MEDS ORDERED: ENOXAPARIN 80 MG/0.8 ML SYRINGE SUBCUT SCH (01:30)
[2021-09-17] MEDS: INSULIN REGULAR 100 UNIT/ML SUBCUT SCH ×2 (07:58→11:30)
[2021-09-17] MEDS ORDERED: PIOGLITAZONE 15 MG TABLET PO SCH (08:00)
[2021-09-17] MEDS: MEMANTINE 5 MG TABLET PO SCH (08:21)
[2021-09-17] MEDS: DOCUSATE SODIUM 100 MG CAPSULE PO SCH (08:21)
[2021-09-17] MEDS ORDERED: PANTOPRAZOLE 40 MG TABLET PO SCH (09:00)
[2021-09-17] MEDS ORDERED: PARoxetine 20 MG TABLET PO SCH (09:00)
[2021-09-17 09:41] VITALS: BP 125/70
[2021-09-18] MEDS ORDERED: ASPIRIN EC 81 MG TABLET PO SCH (09:00)
== END 2021-09-17 11:28 | disposition home or self-care (01) ==
LOC: N.EDINP 09:32 → N.ED 09:32 → N.EDINP 15:08 → N.TELES 15:15
PROVIDERS: ADMIT Family Medicine; ATTEND Family Medicine

== ENCOUNTER 2021-11-14 19:59 | Observation (INO) ==
[2021-11-14 20:36] LABS: Basophils % 0.5 % (0.0-0.8); Eosinophils # 0.1 10*3/uL (0.0-0.87); Eosinophils % 1.9 % (0.00-10.9); Hematocrit 39.3 VOL% (42.0-52.0); Hemoglobin 12.6 GM/DL (14.0-18.0); Immature Granulocytes % 0.2 %; Immature Granulocytes Absolute 0.01 #; Lymphocytes # 2.6 10*3/uL (1.4-4.0); Lymphocytes % 42.5 % (21.2-54.2); Mean Corpuscular HGB Conc 32.1 GM/DL (32-36); Mean Corpuscular Volume 89.3 FL (87-102); Mean Platelet Volume 8.7 FL (9.6-12.0); Neutrophils % 42.9 % (38.7-73.9); Platelet Count 327 T/CUMM (130-400); Red Cell Distribution Width 14.2 % (9.3-17.3); White Blood Count 6.2 T/CUMM (4-12)
[2021-11-14 20:58] LABS: Albumin 4.2 G/DL (3.4-5.0); Bilirubin,Total 0.8 MG/DL (0.20-1.00); Calcium 8.8 MG/DL (8.5-10.1); Osmolality,Calculated 268.2 MOS/KG (273-304); Potassium 4.5 MMOL/L (3.5-5.1); Total Protein 7.9 G/DL (6.4-8.2)
[2021-11-14] MEDS ORDERED: ASPIRIN 325 MG TABLET PO STA (21:06)
[2021-11-14 22:23] LABS: Bilirubin,Urine Negative (Negative); Blood, Urine Negative (Negative); Glucose,Urine (UA) Negative (Negative); Ketones,Urine Negative (Negative); Nitrite,Urine Negative (Negative); Protein,Urine Negative; RBC,Urine <1 /HPF (0-4); Urine Appearance CLEAR (Clear); Urine Color Colorless (Yellow); Urine Specific Gravity 1.002 (1.001-1.035); Urine Urobilinogen < 2.0 EU/DL (<2.0)
[2021-11-15] MEDS ORDERED: ONDANSETRON 4 MG/2 ML VIAL IV PRN (00:17)
[2021-11-15] MEDS ORDERED: ACETAMINOPHEN 325 MG TABLET PO PRN (00:17)
[2021-11-15] MEDS ORDERED: NITROGLYCERIN SL 0.4 MG TABLET SL PRN (08:18)
[2021-11-15] MEDS ORDERED: PANTOPRAZOLE 40 MG TABLET PO SCH (09:00)
[2021-11-15] MEDS ORDERED: PIOGLITAZONE 15 MG TABLET PO SCH (09:00)
[2021-11-15] MEDS ORDERED: metFORMIN 500 MG TABLET PO SCH (09:00)
[2021-11-15] MEDS ORDERED: DOCUSATE SODIUM 100 MG CAPSULE PO SCH (09:00)
[2021-11-15] MEDS ORDERED: PARoxetine 20 MG TABLET PO SCH (09:00)
[2021-11-15] MEDS ORDERED: ASPIRIN EC 81 MG TABLET PO SCH (09:00)
[2021-11-15 11:55] VITALS: BP 147/63
[2021-11-15] MEDS ORDERED: DONEPEZIL 10 MG TABLET PO SCH (21:00)
[2021-11-15] MEDS ORDERED: ATORVASTATIN 20 MG TABLET PO SCH (21:00)
== END 2021-11-15 15:45 | disposition home or self-care (01) ==
LOC: N.EDINP 19:59 → N.ED 19:59 → N.TELES 11-15 02:52
PROVIDERS: ADMIT Family Medicine; ATTEND Family Medicine

== ENCOUNTER 2023-01-09 11:12 | Observation (INO) ==
[2023-01-09] MEDS ORDERED: ASPIRIN 325 MG TABLET PO STA (11:46)
[2023-01-09] MEDS ORDERED: NITROGLYCERIN SL 0.4 MG TABLET SL PRN (11:46)
[2023-01-09 11:47] LABS: Basophils # 0.1 10*3/uL (0.0-0.2); Basophils % 0.8 % (0.0-0.8); Eosinophils # 0.1 10*3/uL (0.0-0.87); Eosinophils % 1.1 % (0.00-10.9); Hematocrit 45.5 VOL% (42.0-52.0); Immature Granulocytes % 0.3 %; Immature Granulocytes Absolute 0.02 #; Lymphocytes # 2.6 10*3/uL (1.4-4.0); Lymphocytes % 32.9 % (21.2-54.2); Mean Corpuscular Volume 90.1 FL (87-102); Mean Platelet Volume 8.9 FL (9.6-12.0); Monocytes # 0.6 10*3/uL (0.11-0.8); Monocytes % 7.4 % (1.7-12.7); Neutrophils % 57.5 % (38.7-73.9); Platelet Count 468 T/CUMM (130-400); Red Blood Count 5.05 MC/CUMM (3.8-5.5); White Blood Count 7.87 T/CUMM (4-12)
[2023-01-09 12:06] LABS: Albumin 4.3 G/DL (3.4-5.0); Bilirubin,Total 0.5 MG/DL (0.20-1.00); Calcium 9.8 MG/DL (8.5-10.1); Osmolality,Calculated 281.7 MOS/KG (273-304); Potassium 4.6 MMOL/L (3.5-5.1); Total Protein 8.1 G/DL (6.4-8.2)
[2023-01-09] MEDS ORDERED: MAGNESIUM SULF RIDER 4 GM/100 ML PREMIX IV PRN (14:27)
[2023-01-09] MEDS ORDERED: ONDANSETRON 4 MG/2 ML VIAL IV PRN (14:27)
[2023-01-09] MEDS ORDERED: MORPHINE 2 MG/1 ML SYRINGE IV PRN (14:27)
[2023-01-09] MEDS ORDERED: MAGNESIUM SULF RIDER 2 GM/50 ML PREMIX IV PRN (14:27)
[2023-01-09] MEDS ORDERED: ZALEPLON 5 MG CAPSULE PO PRN (14:27)
[2023-01-09] MEDS ORDERED: POTASSIUM CHLORIDE 20 MEQ TABLET PO PRN (14:27)
[2023-01-09] MEDS ORDERED: CYCLOBENZAPRINE 10 MG TABLET PO PRN (14:38)
[2023-01-09] MEDS: SODIUM CHLORIDE 0.45% 1,000 ML IV SCH ×2 (15:30→22:30)
[2023-01-09] MEDS: ENOXAPARIN 80 MG/0.8 ML SYRINGE SUBCUT SCH (20:17)
[2023-01-09] MEDS ORDERED: GABAPENTIN 300 MG CAPSULE PO SCH (21:00)
[2023-01-09] MEDS ORDERED: DONEPEZIL 10 MG TABLET PO SCH (21:00)
[2023-01-10] MEDS: SODIUM CHLORIDE 0.45% 1,000 ML IV SCH ×2 (00:46→06:57)
[2023-01-10 06:11] LABS: Risk Ratio 3.93; VLDL Cholesterol 20.2 MG/DL
[2023-01-10] MEDS ORDERED: FAMOTIDINE 20 MG TABLET PO SCH (09:00)
[2023-01-10] MEDS ORDERED: PANTOPRAZOLE 40 MG TABLET PO SCH (09:00)
[2023-01-10] MEDS: ENOXAPARIN 80 MG/0.8 ML SYRINGE SUBCUT SCH (10:35)
[2023-01-10 12:07] VITALS: BP 132/77
[2023-01-10] MEDS ORDERED: ATORVASTATIN 20 MG TABLET PO SCH (21:00)
[2023-01-11] MEDS ORDERED: ASPIRIN EC 81 MG TABLET PO SCH (09:00)
== END 2023-01-10 15:19 | disposition home or self-care (01) ==
LOC: N.ED 11:12 → N.TELES 11:12 → N.TELEN 12:49
PROVIDERS: ADMIT Family Medicine; ATTEND Family Medicine